=== PATIENT | male | born 1960 | race Caucasian/White ===

== ENCOUNTER → 2019-10-14 | Outpatient (REF) | payer BC | LOC: M LAB REF 10:18 | PROVIDERS: ATTEND Dermatology | DX: C44.311 Basal cell carcinoma of skin of nose (principal) ==

== ENCOUNTER → 2020-02-02 | Outpatient (CLI) | payer BC ==
[~2020-02-02] MED LIST: FOLI1TAB11 PO; METH2.5T48 PO
== END ==
LOC: M LABSMTC 12:34
PROVIDERS: ATTEND Anesthesiology
DX: Z01.812 Encounter for preprocedural laboratory examination (principal); Z20.828 Contact with and (suspected) exposure to other viral communicable diseases
CPT/HCPCS: C9803; U0003

== ENCOUNTER 2020-02-07 11:01 | Day surgery (SDC) | payer BC ==
[~2020-02-07] VITALS: Ht 180.3 cm; Wt 81.6 kg
[~2020-02-07 11:01] MED LIST changes: +NS 1,000 ML IV ONE
[2020-02-07] MEDS ORDERED: propofoL 200 MG/20 ML VIAL As Ordered ONE (12:48)
[2020-02-07] MEDS ORDERED: LIDOCAINE 2% 100MG/5ML SDV (FOR ANES.) As Ordered ONE (12:48)
--- NOTE | 2020-02-07 12:53 | ROOR ---
Patient Name: Frank Damon Procedure Date: 02/07/2020 12:29 PM Date of : 1960 Age: 59 Room: [facility] Gender: Male Note Status: Finalized Procedure: Colonoscopy Indications: Anal mass sensation, Rectal pain Providers: Hipolito MEDINA MD Referring MD: CHIP HURTADO MD Requesting Provider: Medicines: Monitored Anesthesia Care Complications: No immediate complications. Procedure: Pre-Anesthesia Assessment: - The heart rate, respiratory rate, oxygen saturations, blood pressure, adequacy of pulmonary ventilation, and response to care were monitored throughout the procedure. The Colonoscope was introduced through the anus and advanced to 10 cm into the ileum. The colonoscopy was performed without difficulty. The patient tolerated the procedure well. The quality of the bowel preparation was good. Findings: The perianal and digital rectal examinations were normal. Pertinent negatives include normal sphincter tone, no palpable rectal lesions, normal prostate (size, shape, and consistency) and no anal lesion or abnormality. Small Internal Hemorrhoids. A few small-mouthed diverticula were found in the sigmoid colon. The exam was otherwise without abnormality on direct and retroflexion views. The terminal ileum appeared normal. Impression: -The perianal and digital rectal examinations were normal. Pertinent negatives include normal sphincter tone, no palpable rectal lesions, normal prostate (size, shape, and consistency) and no anal lesion or abnormality. - Small Internal Hemorrhoids. - Mild diverticulosis in the sigmoid colon. - The colon examination was otherwise normal on direct and retroflexion views. - The examined portion of the ileum was normal. - No specimens collected. Recommendation: - Refer to a colo-rectal surgeon at appointment to be scheduled. Hipolito Medina MD Hipolito MEDINA MD 02/07/2020 12:53:07 PM Electronically signed by Hipolito MEDINA MD Number of Addenda: 0 Note Initiated On: 02/07/2020 12:29 PM Estimated Blood Loss: Estimated blood loss: none.
[2020-02-07 13:10] VITALS: BP 130/77
== END 2020-02-07 13:27 | disposition home or self-care (01) ==
LOC: M OPP 11:01
PROVIDERS: ATTEND Internal Medicine Gastroenterology
DX: K57.30 Diverticulosis of large intestine without perforation or abscess without bleeding (principal); K64.8 Other hemorrhoids; Z79.899 Other long term (current) drug therapy; Z88.2 Allergy status to sulfonamides

== ENCOUNTER 2020-03-11 10:13 | Emergency (ER) | payer BC ==
[~2020-03-11] VITALS: Ht 180.3 cm; Wt 82.7 kg
[~2020-03-11 10:13] MED LIST changes: -NS 1,000 ML IV ONE
[2020-03-11] MEDS ORDERED: TETRACAINE 0.5% OPHTH SOLN 4ML OD ONE (11:30)
[2020-03-11] MEDS ORDERED: FLUORESCEIN OPHTH 1 MG STRIP OD ONE (11:30)
[2020-03-11] MEDS ORDERED: ERYT5OIN25 OD (12:02)
[2020-03-11 12:13] VITALS: BP 140/90
== END 2020-03-11 12:16 | disposition home or self-care (01) ==
LOC: M ED 10:13
DX: S05.01XA Injury of conjunctiva and corneal abrasion without foreign body, right eye, initial encounter (principal); D49.89 Neoplasm of unspecified behavior of other specified sites; X58.XXXA Exposure to other specified factors, initial encounter; Y92.89 Other specified places as the place of occurrence of the external cause; Z88.2 Allergy status to sulfonamides; Z79.899 Other long term (current) drug therapy

== ENCOUNTER → 2022-06-17 | Outpatient (CLI) | payer BC ==
[~2022-06-17] MED LIST changes: +ERYT5OIN25 OD
[2022-06-17 19:37] LABS: HEMATOCRIT 47.2 % (42.0-52.0); HEMOGLOBIN 15.8 g/dl (13.5-17.5); MEAN CORPUSCULAR HEMOGLOBIN 30.9 pg (27.0-33.0); MEAN CORPUSCULAR HGB CONC 33.5 g/dl (32.0-36.5); MEAN CORPUSCULAR VOLUME 92.2 fl (80.0-96.0); PLATELET COUNT, AUTOMATED 247 10^3/uL (150-450); RED BLOOD COUNT 5.12 10^6/uL (4.30-6.10)
[2022-06-17 19:58] LABS: LIPASE 68 U/L (12-53)
[2022-06-17 19:59] LABS: AMYLASE 89 U/L (30-118)
[2022-06-17 20:00] LABS: ALBUMIN 4.1 G/DL (3.2-5.2); ALKALINE PHOSPHATASE 66 U/L (46-116); ALT/SGPT 13 U/L (7.0-40); AST/SGOT 14 U/L (<34); BILIRUBIN,TOTAL 0.6 MG/DL (0.3-1.2); BLOOD UREA NITROGEN 13 MG/DL (9-23); CALCIUM LEVEL 9.1 MG/DL (8.3-10.6); CARBON DIOXIDE LEVEL 28 MMOL/L (20-31); CHLORIDE LEVEL 106 MMOL/L (98-107); CREATININE FOR GFR 1.27 MG/DL (0.70-1.30); GLOMERULAR FILTRATION RATE > 60.0 (>49); GLUCOSE, FASTING 79 MG/DL (74-106); POTASSIUM SERUM 4.1 MMOL/L (3.5-5.1); SODIUM LEVEL 142 MMOL/L (136-145); TOTAL PROTEIN 6.7 G/DL (5.7-8.2)
== END ==
LOC: M WUC 15:06
PROVIDERS: ATTEND Internal Medicine
DX: R10.9 Unspecified abdominal pain (principal)

== ENCOUNTER 2022-12-18 12:18 | Day surgery (SDC) | payer BC ==
[~2022-12-18] VITALS: Ht 180.3 cm; Wt 80.3 kg
[~2022-12-18 12:18] MED LIST changes: +NADO20TA PO; +NS 1,000 ML IV ONE
[2022-12-18] MEDS ORDERED: fentaNYL 100 MCG/2 ML INJECTION As Ordered ONE (14:02)
[2022-12-18 14:16] VITALS: TEMP 97
[2022-12-18 14:31] VITALS: BP 142/86; O2SAT 97
== END 2022-12-18 15:05 | disposition home or self-care (01) ==
LOC: M OPP 12:18
PROVIDERS: ATTEND Internal Medicine Gastroenterology
DX: K22.89 Other specified disease of esophagus (principal); K44.9 Diaphragmatic hernia without obstruction or gangrene; R10.13 Epigastric pain
CPT/HCPCS: 43239; 88305; J3010

== ENCOUNTER → 2023-12-10 | Outpatient (REF) | payer BC ==
[~2023-12-10] MED LIST changes: -NS 1,000 ML IV ONE
== END ==
LOC: M LAB REF 17:24
PROVIDERS: ATTEND Otolaryngology
DX: J34.89 Other specified disorders of nose and nasal sinuses (principal)

== ENCOUNTER → 2024-10-21 | Outpatient (CLI) | payer BC ==
[~2024-10-21] MED LIST changes: -NADO20TA PO; +NADO20TA38 PO
== END ==
LOC: M RAD 08:10
PROVIDERS: ATTEND Nurse Practitioner
DX: N20.0 Calculus of kidney (principal)